=== PATIENT | female | born 1955 | race Caucasian/White ===

== ENCOUNTER → 2017-03-15 | Outpatient (CLI) | payer MEDICARE ==
[~2017-03-15] MED LIST: ALLERGY RELIEF10 M1 PO; ASPIRIN EC81 MG PO; BACTRIM D.S. TAB1 EA PO; BUSPIRONE HCL10 MG PO; COLESTID1 GM PO; DIFLUCAN150 MG PO; DRISDOL50000 UNIT PO; GLUCOPHAGE 500500 MG PO; INVOKANA100 MG PO; K-DUR TAB 10 M10 MEQ PO; LASIX20 MG PO; LIPITOR TAB 2020 MG PO; LYRICA150 MG PO; MECLIZINE HCL25 MG PO; MELATONIN10 MG PO; OMEGA-31000 MG PO; PROTONIX40 MG PO; PROVENTIL HFA 61 INH INH; REQUIP1 MG PO; RESTASIS 0.05%1 EACH OD; SOTALOL120 MG PO; SYMBICORT 160-1 INHA INH; TIROSINT100 MCG PO; TRAMADOL HCL50 MG PO; VIBRAMYCIN100 MG PO; VITAMIN D50000 UNIT PO; XARELTO20 MG PO
== END ==
LOC: HEART 5 10:42
DX: I48.0 Paroxysmal atrial fibrillation (principal); R00.2 Palpitations

== ENCOUNTER → 2017-04-07 | Outpatient (CLI) | payer MEDICARE | LOC: KOH-I 11:21 | DX: M66.371 Spontaneous rupture of flexor tendons, right ankle and foot (principal); R60.0 Localized edema; R93.7 Abnormal findings on diagnostic imaging of other parts of musculoskeletal system | CPT/HCPCS: 73718 ==